=== PATIENT | female | born 1980 | race Caucasian/White ===

== ENCOUNTER 2020-02-23 06:22 | Emergency (ER) | payer BC, MEDICAID, SELFPAY ==
--- NOTE | ~2020-02-23 | CT_ITS ---
EXAMINATION: CT brain wo con EXAM DATE: 02/23/2020 06:47 INDICATION: Seizure. TECHNIQUE: Spiral CT of the head was performed without contrast. Axial, coronal and sagittal images were reviewed. The dose-length product (DLP) for this examination was 605.33 mGy-cm. The exposure w as tailored according to patient size, and iterative reconstruction (ASIR) was used as additional dos e reduction technique. Comparison is made to prior examination from 08/21/2018. FINDINGS: There is no acute intraparenchymal hemorrhage. No evidence of intraparenchymal brain mass lesion. No evidence of acute infarction. There is no mass effect or midline shift. The ventricles are normal in size. There are no extra-axial collections. There are no acute calvarial fractures. T he orbits are unremarkable. Soft tissue is unremarkable. The visualized sinuses and mastoid air susan ls are well aerated. IMPRESSION: 1. Normal head CT examination. Reviewed, dictated and finalized at location A.
--- NOTE | ~2020-02-23 | XR_ITS ---
EXAMINATION: XR chest 2V EXAM DATE: 02/23/2020 06:51 INDICATION: Seizure, altered mental status. TECHNIQUE: Frontal and lateral projections of the chest obtained and reviewed. There is no prior lety dy for comparison. FINDINGS: Mild hyperinflation. The lungs are clear. There are no pleural effusions. The cardiomedi astinal silhouette is within normal limits. There is no pneumothorax suspected. The bones and soft tissues are unremarkable. IMPRESSION: No acute cardiopulmonary findings. Reviewed, dictated and finalized at location A.
--- NOTE | 2020-02-23 06:19 | ED.SEIZURE ---
HPI - Seizure General Chief Complaint: Seizure Stated Complaint: seizure/combative Source: patient and EMS Mode of arrival: EMS History of Present Illness HPI Narrative: Patient presented to the emergency department for evaluation of possible seizure activity. History obtained from EMS. Apparently, patient's boyfriend found her shaking in bed early this morning, EMS was called, glucose on scene was 158. Patient seizure activity had stopped, patient was quite combative trying to strike out at EMS crew. Patient was not given any sedating medications, was transported to our facility. She is able to ambulate from the stretcher to the bed with assistance. Patient is oriented to person, place and to time. Unable to provide any specific details. She is somewhat agitated. EMS reports that patient has no seizure history. Related Data Allergies Allergy/AdvReac Type Severity Reaction Status Date / Time latex Allergy Unknown Swelling Verified 01/03/17 13:41 Review of Systems Review of Systems: ROS unobtainable: Yes unobtainable due to medical condition PMFSH Past Medical History Medical History Abnormal uterine bleeding Anemia Fibroids Gastroesophageal reflux Surgical History Surgical History (Updated 02/23/20 @ 06:29 by Linda Last MD) H/O Spinal surgery Social History Social History (Updated 02/23/20 @ 06:30 by Linda Last MD) Smoking status: Never smoker Alcohol intake: current Substance use: never Gender identity (if verbalized by the patient): Female Exam Narrative: Exam Narrative: GENERAL: Awake, alert, slightly agitated HEAD: Normocephalic, atraumatic. EYES: PERRLA and EOMI. ENT: Nares clear, no rhinorrhea or epistaxis. Mucous membranes moist. No tongue laceration. NECK: Supple. CHEST: No respiratory distress, breathing even and non labored HEART: Regular rate, sinus rhythm ABDOMEN:Non distended, non tender EXTREMITIES: Normal range of motion. No edema. SKIN: Pale, warm, dry, no rash. NEURO:No focal deficits. Alert and oriented x3, agitated, able to follow commands, not able to provide specific details regarding symptoms or medical history Course Vital Signs Vital signs: Vital Signs Temperature 37.2 C 02/23/20 06:21 Pulse Rate 89 02/23/20 06:21 Respiratory Rate 20 02/23/20 06:21 Blood Pressure 118/65 02/23/20 06:21 Pulse Oximetry 95 02/23/20 06:21 Temperature 37.2 C 02/23/20 06:21 Pulse Rate 89 02/23/20 06:21 Respiratory Rate 20 02/23/20 06:21 Blood Pressure 118/65 02/23/20 06:21 Pulse Oximetry 95 02/23/20 06:21 MDM - Seizure MDM Narrative Medical decision making narrative: Patient presented for evaluation of possible seizure activity. At the time of assessment, ABCs are intact, vital signs are stable. Patient is somewhat agitated, she is alert and oriented to person, place, and to time but not able to provide specific history or details. She is denying any pain but does report nausea. IV access obtained and labs are drawn. EKG without any ischemic changes or evidence of arrhythmia. Laboratory results notable for mild leukocytosis, transaminitis. No hyperbilirubinemia. No severe electrolyte derangement. CT head without acute intracranial abnormality and chest x-ray shows no evidence of pneumonia. Patient was reassessed and is now completely back to baseline but has no recollection of events when she arrived to the hospital. She states that she had been feeling well yesterday and does not have any seizure history. She reports marijuana use but denied any drug or alcohol use. Patient is reporting mild nausea. Additional laboratory studies still pending. Patient was signed out to oncoming physician awaiting these as well as reassessment. Ultimate care and disposition to be determined by Dr. Allen. Differential Diagnosis Differential diagnosis: Likely febrile convulsion, generalized se
[2020-02-23 06:21] VITALS: BP 118/65; PULSE 89; RESP 20; TEMP 37.2; O2SAT 95
--- NOTE | 2020-02-23 06:24 | ECG_ITS ---
Measurements Intervals [place] Rate: 74 P: 30 [place]: 125 QRS: 50 QRSD: 96 T: 38 QT: 393 QTc: 439 Interpretive Statements SINUS RHYTHM BORDERLINE ST ABNORMALITY- ANTEROLAT/INF LEADS BORDERLINE ECG Electronically Signed On 02-23-2020 7:06:17 CDT by Hiren Pelayo D.O.
[2020-02-23] MEDS: ONDANSETRON INJ 4 MG/2 ML VIAL IV PUSH (06:32)
[2020-02-23] MEDS: SODIUM CHLORIDE 0.9% IV 1,000 ML 999 ML IV CONT (06:32)
[2020-02-23 06:52] LABS: Hematocrit 41.1 % (37.0-47.0); Hemoglobin 13.3 g/dL (12.0-15.0); Mean Corpuscular HGB Conc 32.4 g/dl (32-36); Mean Corpuscular Hemoglobin 30.6 pg (26-34); Mean Corpuscular Volume 94.7 fl (80-100); Mean Platelet Volume 10.2 fl (7.4-10.4); Platelet Count Result 430 k/mm3 (150-375); Red Blood Count 4.34 M/mm3 (4.2-5.4); Red Cell Distribution Width 13.2 % (11.5-14.5); White Blood Count 13.6 K/mm3 (4.5-10.0)
[2020-02-23 07:02] LABS: Eosinophils Percent Manual 3 % (0-4); Lymphocytes Absolute Manual 4.35 K/mm3 (1.1-4.5); Monocytes Absolute Manual 0.54 K/mm3 (0.1-0.90); Monocytes Percent Manual 4 % (3-9); Neutrophils Percent Manual 61 % (46-73); Total Cells Counted 100
[2020-02-23 07:03] LABS: Ethanol < 10 mg/dL (<10)
[2020-02-23 07:04] LABS: Atypical Lymphocytes Present
[2020-02-23 07:05] LABS: Alanine Aminotransferase 150 U/L (4-35); Albumin Level 4.6 g/dL (3.5-5.1); Alkaline Phosphatase 155 U/L (38-126); Anion Gap 14 mmol/L (8-16); Aspartate Amino Transferase 167 U/L (14-36); Bilirubin,Total 0.6 mg/dL (0.2-1.3); Blood Urea Nitrogen 8 mg/dL (7-17); Calcium 9.3 mg/dL (8.4-10.2); Carbon Dioxide 19 mmol/L (22-30); Chloride 104 mmol/L (98-107); Estimated CRCL calculation 79 ml/min; Estimated Glomerular Filt Rate > 60; Glucose 186 mg/dL (65-105); Potassium 4.1 mmol/L (3.4-5.0); Sodium 137 mmol/L (137-145)
[2020-02-23 07:25] LABS: Lactic Acid Reflex 2.9 mmol/L (0.7-2.1)
[2020-02-23] MEDS: METOCLOPRAMIDE HCL INJ 10 MG/2 ML VIAL IV PUSH (07:26)
[2020-02-23 07:36] VITALS: BP 104/68; PULSE 70; RESP 20; O2SAT 97
[2020-02-23 07:53] LABS: Add Urine Microscopic? YES; Appearance Urine Cloudy (Clear); Bacteria Urine 3+ /hpf; Bilirubin Urine Negative (Negative); Blood Urine Negative (Negative); Color Urine Yellow (Yellow); Glucose Urine UA 1+ mg/dL (Negative); Ketones Urine Trace mg/dL (Negative); Leukocyte Esterase Ur Negative LEU/UL (Negative); Mucus Urine Few /lpf; Nitrate Urine Negative (Negative); Protein Urine 2+ mg/dL (Negative); RBC Urine 0-2 /hpf (0-2); Specific Grav Ur 1.016 (1.001-1.035); Squamous Epithelial Cell Urine Few /hpf (Few); Transitional Epi Cells Urine Rare /hpf (None Seen); Urobilinogen Urine Negative mg/dL (<2.0)
[2020-02-23 08:04] LABS: Amphetamine Screen Urine Negative (Negative); Barbiturate Screen Urine Negative (Negative); Benzodiazepines Screen Urine Negative (Negative); Cannabinoid Screen Urine Positive (Negative); Cocaine Screen Urine Negative (Negative); Methadone Screen Urine Negative (Negative); Opiate Screen Urine Negative (Negative); Phencyclidine Screen Urine Negative (Negative)
[2020-02-23] MEDS: levETIRAcetam 500MG/NACL 100ML 500 MG/100 ML BAG 400 MG IVPB (08:24)
[2020-02-23 08:29] LABS: Glucose Point of Care 101 (65-105)
[2020-02-23 09:35] VITALS: BP 93/44; PULSE 68; RESP 17; O2SAT 98
[2020-02-23 10:11] LABS: Reflex Lactic Acid Yes or No Add Lactic
[2020-02-23] MEDS: ACETAMINOPHEN 500 MG TABLET 650 MG PO (10:58)
[2020-02-23 10:59] VITALS: BP 110/88; PULSE 88; RESP 16; O2SAT 97
[2020-02-23] MEDS: ONDANSETRON HCL ODT 4 MG TABLET PO (10:59)
== END 2020-02-23 10:45 | disposition home or self-care (01) ==
PROVIDERS: Emergency Provider Emergency Medicine
DX: R45.1 Restlessness and agitation (principal); R74.0 Nonspecific elevation of levels of transaminase and lactic acid dehydrogenase [LDH]; K21.9 Gastro-esophageal reflux disease without esophagitis
CPT/HCPCS: 36415; 70450; 71046; 80053; 80307; 81001; 81025; 82948; 83605; 84443; 85025; 93005; 96361; 96374; 96375; 99284; A9270; J1953; J2405; J2765; J7030

== ENCOUNTER 2020-03-06 19:37 | Emergency (ER) | payer BC, MEDICAID, SELFPAY ==
--- NOTE | ~2020-03-06 | CT_ITS ---
EXAMINATION: CTA brain DATE: 03/06/2020 21:16 INDICATION: Right-sided headache and dizziness. TECHNIQUE: Computed tomographic angiography (CTA) of the head was performed without and with 100 mL O mnipaque-350 intravenous contrast. There is poor timing of the contrast bolus on the initial angiogra phi portion of the study and the post contrast imaging was repeated a second identical contrast bolu s. Precontrast CT of the head was also obtained. Volume-rendered and maximum intensity projection 3D reconstructions of the intracranial arteries were created by the technologist on a separate workstati on. The dose-length product was 1355 mGy-cm. COMPARISON: Head CT dated 02/23/2020 FINDINGS: No acute intracranial hemorrhage, acute infarction or abnormal extra axial fluid collection. Ventricl es are normal and symmetric. No mass/mass effect. The orbits, paranasal sinuses and mastoid air cells are normal. No abnormally enhancing lesions identified. There is no hemodynamically significant stenosis in the vertebral, basilar and internal carotid arter ies. Vertebral arteries are codominant. There are no aneurysms identified. Both A1 and P1 segments a re patent. Cerebral arterial arborization appears symmetric. IMPRESSION: 1. Normal CT and CT angiogram of the head. Reviewed, dictated and finalized at location A.
[2020-03-06 19:38] VITALS: BP 111/88; PULSE 100; RESP 18; TEMP 36.2; O2SAT 100
--- NOTE | 2020-03-06 19:46 | ECG_ITS ---
Measurements Intervals [place] Rate: 85 P: 63 [place]: 131 QRS: 61 QRSD: 95 T: 54 QT: 401 QTc: 478 Interpretive Statements SINUS RHYTHM POSSIBLE LEFT ATRIAL ENLARGEMENT BORDERLINE ST-T WAVE ABNORMALITY- DIFFUSE LEADS BORDERLINE ECG Electronically Signed On 03-12-2020 8:01:28 CDT by Hiren Pelayo D.O.
--- NOTE | 2020-03-06 20:02 | PC.NURSE ---
2000: pt complains of numbness to left hand. stating that her thumb and 3,4,5 are tingling provider aware no new orders
[2020-03-06 20:16] LABS: Basophils Absolute Auto 0.1 K/mm3 (0.0-0.1); Basophils Percent Auto 0.5 % (0.2-1.2); Eosinophils Absolute Auto 0.3 K/mm3 (0-0.3); Eosinophils Percent Auto 2.7 % (0-4.4); Hematocrit 39.1 % (37.0-47.0); Hemoglobin 13.7 g/dL (12.0-15.0); Immature Granulocyte Absolute 0.04 K/mm3 (0.00-0.031); Immature Granulocyte Percent A 0.3 % (0-0.5); Lymphocytes Absolute Auto 4.99 K/mm3 (0.9-3.2); Lymphocytes Percent Auto 41.7 % (18.3-44.2); Mean Corpuscular Volume 91.4 fl (80-100); Mean Platelet Volume 9.8 fl (7.4-10.4); Monocytes Absolute Auto 0.7 K/mm3 (0.1-0.6); Neutrophils Absolute Auto 5.8 K/mm3 (1.3-6.7); Neutrophils Percent Auto 48.8 % (45.5-73.1); Platelet Count Result 463 k/mm3 (150-375); Red Blood Count 4.28 M/mm3 (4.2-5.4)
[2020-03-06 20:26] LABS: Partial Thromboplastin Time 30.8 SECONDS (22.3-36.8)
[2020-03-06 20:27] LABS: Anion Gap 11 mmol/L (8-16); Blood Urea Nitrogen 10 mg/dL (7-17); Calcium 9.8 mg/dL (8.4-10.2); Carbon Dioxide 28 mmol/L (22-30); Chloride 102 mmol/L (98-107); Estimated CRCL calculation 68 ml/min; Estimated Glomerular Filt Rate > 60; Glucose 104 mg/dL (65-105); Potassium 3.8 mmol/L (3.4-5.0); Sodium 141 mmol/L (137-145)
[2020-03-06 20:33] LABS: Atypical Lymphocytes Present; Platelet Estimate Increased (Adequate)
[2020-03-06] MEDS: SODIUM CHLORIDE 0.9% IV 1,000 ML 999 ML IV CONT (21:54)
[2020-03-06 21:58] LABS: Add Urine Microscopic? YES; Amorphous Sediment Urine Few; Appearance Urine Cloudy (Clear); Bacteria Urine 3+ /hpf; Bilirubin Urine Negative (Negative); Blood Urine 1+ (Negative); Color Urine Yellow (Yellow); Glucose Urine UA Negative (Negative); Ketones Urine Negative (Negative); Leukocyte Esterase Ur Trace LEU/UL (Negative); Mucus Urine Rare /lpf; Nitrate Urine Negative (Negative); Protein Urine Negative (Negative); Squamous Epithelial Cell Urine Many /hpf (Few); Urobilinogen Urine Negative mg/dL (<2.0)
[2020-03-06] MEDS: METOCLOPRAMIDE HCL INJ 10 MG/2 ML VIAL IV PUSH (22:08)
[2020-03-06] MEDS: diphenhydrAMINE HCl INJ 50 MG/ML VIAL 25 MG IV PUSH (22:08)
[2020-03-06] MEDS: KETOROLAC 30 MG/ML VIAL (*BKC) IV PUSH (22:08)
[2020-03-06 22:21] LABS: Amphetamine Screen Urine Negative (Negative); Barbiturate Screen Urine Negative (Negative); Benzodiazepines Screen Urine Negative (Negative); Cannabinoid Screen Urine Positive (Negative); Cocaine Screen Urine Negative (Negative); Methadone Screen Urine Negative (Negative); Opiate Screen Urine Negative (Negative); Phencyclidine Screen Urine Negative (Negative)
--- NOTE | 2020-03-06 22:48 | ED.GENADULT ---
HPI - General Adult General Chief complaint: Dizziness Stated complaint: near syncope Time Seen by Provider: 03/06/20 19:37 History of Present Illness HPI narrative: Patient is a 39-year-old female who presents the ER with a neurologic complaint. Recently patient was diagnosed with epilepsy. She had an outpatient MRI that showed a right frontal venous anomaly. She is seeing a neurologist [facility]. She is going to have an EEG in 2 days. She has been taking her Keppra twice a day. Patient developed dizziness and slurred speech while at dinner. She had keep holding her head. She cannot walk to her dizziness. While in the ambulance coming to the ER she developed headache. She has sensitivity to light. Related Data Allergies Allergy/AdvReac Type Severity Reaction Status Date / Time latex Allergy Unknown Swelling Verified 03/06/20 19:48 Review of Systems Review of Systems: All systems reviewed & are unremarkable except as noted in HPI and below Constitutional: Constitutional: Denies chills, Denies fever(s) and Denies weakness Eyes: Eyes: Reports change in vision and Reports photophobia ENT: Denies nasal congestion Cardiovascular: Cardiovascular: Denies chest pain, Denies rapid heart rate and Denies radiating jaw, neck or arm pain Respiratory: Respiratory: Denies cough and Denies dyspnea Neurologic: Reports confusion, Reports dizziness, Reports headache(s) and Denies numbness Comments: Slurred speech PMFSH Surgical History Surgical History (Updated 02/23/20 @ 06:29 by Linda Last MD) H/O Spinal surgery Social History Social History (Updated 02/23/20 @ 06:30 by Linda Last MD) Smoking status: Never smoker Alcohol intake: current Substance use: never Gender identity (if verbalized by the patient): Female Exam Narrative: Exam Narrative: GENERAL: Well-appearing, well-nourished, and in no acute distress. HEAD: Normocephalic, atraumatic. ENT: Mucous membranes moist. CHEST: Clear to auscultation. No respiratory distress. HEART: Regular rate and rhythm. Normal peripheral pulses. ABDOMEN: Soft, nontender, nondistended. EXTREMITIES: Normal range of motion. No edema. SKIN: Warm, dry, no rash. NEURO: No focal deficits. Alert and oriented x3. PSYCH: Normal mood and affect. Course Course Emergency Course: Patient's symptoms abated with Reglan/Benadryl/Toradol. Suspect patient is having a migraine variant. Keep follow-up with her neurologist. Vital Signs Vital signs: Vital Signs Temperature 97.2 F L 03/06/20 19:38 Pulse Rate 100 03/06/20 19:38 Respiratory Rate 18 03/06/20 19:38 Blood Pressure 111/88 03/06/20 19:38 Pulse Oximetry 100 03/06/20 19:38 Temperature 97.2 F L 03/06/20 19:38 Pulse Rate 100 03/06/20 19:38 Respiratory Rate 18 03/06/20 19:38 Blood Pressure 111/88 03/06/20 19:38 Pulse Oximetry 100 03/06/20 19:38 Medical Decision Making Vital Signs Vital Signs: Vital Signs Temperature 97.2 F L 03/06/20 19:38 Pulse Rate 100 03/06/20 19:38 Respiratory Rate 18 03/06/20 19:38 Blood Pressure 111/88 03/06/20 19:38 Pulse Oximetry 100 03/06/20 19:38 Temperature 97.2 F L 03/06/20 19:38 Pulse Rate 100 03/06/20 19:38 Respiratory Rate 18 03/06/20 19:38 Blood Pressure 111/88 03/06/20 19:38 Pulse Oximetry 100 03/06/20 19:38 Lab Data Result diagrams: 03/06/20 20:10 03/06/20 20:10 Labs: Lab Results 03/06/20 03/06/20 03/06/20 Range/Units 20:10 20:10 20:10 WBC 12.0 H (4.5-10.0) K/mm3 RBC 4.28 (4.2-5.4) M/mm3 Hgb 13.7 (12.0-15.0) g/dL Hct 39.1 (37.0-47.0) % MCV 91.4 (80-100) fl MCH 32.0 (26-34) pg MCHC 35.0 (32-36) g/dl RDW 13.0 (11.5-14.5) % Plt Count 463 H (150-375) k/mm3 MPV 9.8 (7.4-10.4) fl Immature Gran % (Auto) 0.3 (0-0.5) % Neut % (Auto) 48.8 (45.5-73.1) % Lymph % (Auto) 41.7 (18.3-44.2) % [place] %
[2020-03-06 23:05] VITALS: BP 103/65; PULSE 65; RESP 16; TEMP 37; O2SAT 98
== END 2020-03-06 23:06 | disposition home or self-care (01) ==
PROVIDERS: Emergency Provider Emergency Medicine; PCP Physician Assistant
DX: G43.909 Migraine, unspecified, not intractable, without status migrainosus (principal); G40.909 Epilepsy, unspecified, not intractable, without status epilepticus
CPT/HCPCS: 36415; 70496; 80048; 80307; 81001; 85025; 85610; 85730; 87086; 87088; 93005; 96361; 96374; 96375; 99284; J1200; J1885; J2765; J7030; Q9967